=== PATIENT | male | born 1945 | race Caucasian/White ===

== ENCOUNTER → 2017-01-20 | Outpatient (CLI) | payer MEDICARE, OTHER | END | disposition home or self-care (01) | LOC: GMAJ 10:40 | PROVIDERS: ATTEND Family Medicine | DX: C61 Malignant neoplasm of prostate (principal) ==

== ENCOUNTER → 2017-07-21 | Outpatient (CLI) | payer MEDICARE, OTHER | LOC: GMAJ 10:31 | PROVIDERS: ATTEND Family Medicine | DX: C61 Malignant neoplasm of prostate (principal) ==

== ENCOUNTER → 2017-12-28 | Outpatient (CLI) | payer MEDICARE, OTHER | LOC: LAB.O 14:03 | PROVIDERS: ATTEND Psychiatry & Neurology Clinical Neurophysiology | DX: D51.9 Vitamin B12 deficiency anemia, unspecified (principal); E08.00 Diabetes mellitus due to underlying condition with hyperosmolarity without nonketotic hyperglycemic-hyperosmolar coma (NKHHC); E67.2 Megavitamin-B6 syndrome; E55.9 Vitamin D deficiency, unspecified; M06.4 Inflammatory polyarthropathy; E61.1 Iron deficiency; E03.8 Other specified hypothyroidism; M46.90 Unspecified inflammatory spondylopathy, site unspecified; N42.9 Disorder of prostate, unspecified; Z51.81 Encounter for therapeutic drug level monitoring ==

== ENCOUNTER → 2018-03-22 | Outpatient (CLI) | payer MEDICARE, OTHER ==
--- NOTE | 2018-03-22 09:29 | CT ---
EXAM DESCRIPTION: Abdomen/Pelvis w/Contrast CLINICAL HISTORY: RUQ PAIN COMPARISON: Ultrasound June 10, 2016. CT July 24, 2014 TECHNIQUE: Postcontrast CT images of the abdomen and pelvis are obtained using standard imaging protocol. This exam was performed according to our departmental dose-optimization program, which includes automated exposure control, adjustment of the mA and/or kV according to patient size and/or use of iterative reconstruction technique . FINDINGS: The visualized lung bases show linear interstitial thickening likely representing scarring or atelectasis similar to improved from previous. 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 Geographic areas of decreased attenuation in the liver are now seen new from previous. Multiple fluid attenuation hepatic cysts are again identified overall stable in size and number compared to previous. The spleen, pancreas, adrenal glands, and gallbladder are unremarkable. Abdominal vasculature shows mild atherosclerotic disease. There is a 4.7 cm fluid attenuation cortical cyst in the medial upper pole of the right kidney. Small exophytic cyst of the lateral upper pole left kidney is stable. No ureteral calcification or obstruction is seen. Urinary bladder is contracted. Mild circumferential diffuse bladder wall thickening is seen measuring up to 10 mm thickness. Surgical clips in the pelvis are noted status post prostatectomy stable from previous. Moderate fat-containing bilateral inguinal hernias are seen. The appendix is small and unremarkable. Stomach is contracted. No small bowel obstruction or bowel wall thickening. Colon is unremarkable. No significant diverticular disease. Fat attenuation partly calcified 1.7 cm nodule in the mesentery of the right upper quadrant is unchanged from previous. No pathologically enlarged abdominal or retroperitoneal lymphadenopathy is seen. There is a partly calcified lymph node in the central mesentery of the mid abdomen measuring 1.6 cm not definitely seen on the prior exam. Smaller nodule with central calcification measures 9 mm more inferiorly. There is a third 10 mm partly calcified nodule on image 46 of series 4. There are several less than 1 cm lymph nodes in the mesentery of the abdomen. 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 There is more thrombus than seen on previous exam. Probable reactive lymph nodes in the groin bilaterally. Osseous structures show no aggressive bony lesions. Degenerative changes of the spine are seen. IMPRESSION: Multiple simple hepatic cysts are again seen. Scarring or atelectasis in the lung bases is improved from previous. There are new partly calcified lymph nodes in the central mesentery measuring up to 1.6 cm greatest diameter. This is of unknown etiology or clinical significance. Consider short-term imaging follow-up. PET/CT imaging may be useful to exclude partly calcified lymphatic metastases. Postsurgical changes from prostatectomy. Circumferential urinary bladder wall thickening could be secondary to poor distention of the urinary bladder versus some degree of chronic bladder outlet obstruction. Infectious or inflammatory process can have a similar appearance. There are now geographic areas of decreased attenuation in the liver that could represent areas of fatty infiltration. Consider follow-up imaging to ensure stability. Aneurysm of the left common iliac artery shows more mural thrombus and seen on previous exam. Consider yearly follow-up imaging. Electronically signed by: Bill Carrington MD 03/22/2018 9:27 AM CDT
== END ==
LOC: CT 08:00
PROVIDERS: ATTEND Family Medicine
DX: R10.11 Right upper quadrant pain (principal); I72.3 Aneurysm of iliac artery; K76.89 Other specified diseases of liver

== ENCOUNTER → 2018-10-12 | Outpatient (CLI) | payer MEDICARE, OTHER ==
--- NOTE | 2018-10-12 12:35 | CT ---
EXAM DESCRIPTION: CTA Abdomen (accession [id number]), CTA Pelvis (accession [id number]) CLINICAL HISTORY: 73 years Male, ANEURYSM OF LEFT ILLIAC ART. COMPARISON: Contiguous 2.5 mm axial images were obtained from above the diaphragm to below the proximal femoral level with the use of full intravenous contrast during the arterial phase. Reconstructed 3-D as well as coronal and sagittal images were obtained on a separate workstation and reviewed. This exam was performed according to our departmental dose-optimization program, which includes automated exposure control, adjustment of the mA and/or kV according to patient size and/or use of iterative reconstruction technique. FINDINGS: Angiographic evaluation: The infrarenal abdominal aorta is nonaneurysmal with mild atherosclerotic calcifications. The celiac trunk, SMA, bilateral renal arteries and MARCELINO are well-opacified with no hemodynamically significant stenosis. Again noted is a fusiform aneurysmal dilatation of left common iliac artery approximately 3 cm below the bifurcation, the aneurysmal sac measuring up to 1.7 cm in the AP dimension with a small chronic dissection measuring approximately 1.6 cm extending superiorly with partially thrombosed false lumen. The aneurysmal sac appears stable in size in comparison to prior CT abdomen pelvis from March 22, 2018. The right common iliac artery demonstrates mild tortuosity with no aneurysmal dilatation. Bilateral internal and external common iliac arteries are widely patent with mild atherosclerotic disease, with no hemodynamically significant stenosis or aneurysmal dilatation. Nonangiographic evaluation: The visualized lower thorax again demonstrates linear scarring/atelectatic changes in both lower lobes right worse than left which appears stable from prior exam. Bibasilar atelectatic changes are seen. No pleural or pericardial effusion. The liver again demonstrates multiple low-density lesions scattered throughout the both lobes which appears stable in size, the largest lesion measuring up to 1.7 cm in hepatic segment 2 and 3.3 cm in hepatic segment 5/6, likely represent simple cysts. No intrahepatic ductal dilatation. The gallbladder, spleen, pancreas and both adrenal glands appear grossly unremarkable. Both kidneys enhance symmetrically with no evidence of nephrolithiasis, hydronephrosis, hydroureter are perinephric fluid collections. Mild bilateral perinephric stranding likely appears chronic. Again noted is a 4.7 cm exophytic low-density lesion in the upper pole of right kidney consistent with a simple cyst which appears stable from prior exam. The distal esophagus and the stomach appear grossly unremarkable. The small and large bowel loops appear grossly unremarkable with no abnormal dilatation or wall thickening. The appendix appears grossly unremarkable. No free intraperitoneal air or fluid. No enlarged abdominal or retroperitoneal lymphadenopathy. Again noted are multiple surgical clips in the pelvis and bilateral external iliac chain lymph node region. The urinary bladder is a collapsed limiting detail evaluation. The prostate is not visualized likely surgically absent. No free fluid in the pelvis. Review of the bone windows demonstrate no acute osseous abnormality. Diffuse osteopenia of the visualized thoracolumbar spine noted. A large anterior disc osteophyte complex noted at L5-S1 level. IMPRESSION: 1. 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 The aneurysmal sac appears stable in size in comparison to recent CT abdomen pelvis dated March 22, 2018. 2. No other acute intra-abdominal process. Electronically signed by: Burt Crysatl MD 10/12/2018 12:32 PM CDT
== END ==
LOC: CT 09:09
PROVIDERS: ATTEND Nuclear Medicine Nuclear Cardiology
DX: I72.3 Aneurysm of iliac artery (principal); R91.8 Other nonspecific abnormal finding of lung field; I10 Essential (primary) hypertension; G20 Parkinson's disease

== ENCOUNTER → 2019-04-05 | Outpatient (CLI) | payer MEDICARE, OTHER | LOC: GMAJ 10:39 | PROVIDERS: ATTEND Family Medicine | DX: C61 Malignant neoplasm of prostate (principal); I10 Essential (primary) hypertension ==

== ENCOUNTER → 2020-03-02 | Outpatient (CLI) | payer MEDICARE, OTHER | LOC: GMAJ 11:52 | PROVIDERS: ATTEND Family Medicine | DX: C61 Malignant neoplasm of prostate (principal); I10 Essential (primary) hypertension ==